=== PATIENT | female | born 1990 | race Hispanic/Latino ===

== ENCOUNTER 2018-03-01 00:17 | Emergency (ER) | payer SELFPAY ==
[2018-03-01 01:02] LABS: Absolute Lymphocytes (CBC) 2.6 K/uL (0.7-4.9); Absolute Monocytes 0.6 K/uL (0.1-1.3); Absolute Neutrophil 4.5 K/uL (1.8-8.0); Basophils % 0.6 % (0-1.3); Eosinophils % 3.2 % (0-4.4); Hematocrit 37.6 % (36.0-45.0); Lymphocytes % 32.2 % (15.3-44.8); MCH 29.6 pg (27.0-35.0); MCV 88.1 fL (80-100); MPV 7.9 fL (7.6-11.3); Monocytes % 7.7 % (3.3-12.3); RBC Red Blood Cell Count 4.27 M/uL (3.86-4.86)
[2018-03-01 01:46] LABS: BUN Blood Urea Nitrogen 20 mg/dL (7-18); Bicarbonate 29 mmol/L (21-32); Glucose Level 100 mg/dL (74-106); Potassium 4.7 mmol/L (3.5-5.1); Sodium Level 142 mmol/L (136-145); Troponin (Emerg Dept Use Only) < 0.02 ng/mL (0.0-0.045)
--- NOTE | 2018-03-01 02:06 | ER ---
Nurse's Notes [facility] Name: Annika Hilliard Age: 27 yrs Sex: Female : 1990 Arrival Date: 03/01/2018 Time: 00:19 Bed 6 Private MD: Diagnosis: Chest pain, unspecified Presentation: 03/01 00:29 Presenting complaint: Presenting complaint: Patient states: Chest pain that began lp1 Saturday morning, episodes that last "a few minutes"; States pain to mid chest that radiates to bilateral shoulders, "it feels like my throat is knotted up"; Denies any shortness of breath, nausea, dizziness. 00:30 Transition of care: patient was not received from another setting of care. Onset of lp1 symptoms was February 28, 2018 at 03:00. Risk Assessment: Do you want to hurt yourself or someone else? Patient reports no desire to harm self or others. Initial Sepsis Screen: Does the patient meet any 2 criteria? No. Patient's initial sepsis screen is negative. Does the patient have a suspected source of infection? No. Patient's initial sepsis screen is negative. Care prior to arrival: None. 00:30 Method Of Arrival: Ambulatory lp1 00:30 Acuity: KARLO 3 lp1 Triage Assessment: 00:33 General: Appears in no apparent distress. Behavior is appropriate for age. Pain: lp1 Complains of pain in chest. Cardiovascular: Patient's skin is warm and dry. Respiratory: Respiratory effort is even, unlabored. 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 - Social history:: Smoking status: Patient/guardian denies using tobacco. - Ebola Screening: : No symptoms or risks identified at this time. Screenin:33 Abuse screen: Denies threats or abuse. Denies injuries from another. Nutritional lp1 screening: No deficits noted. Tuberculosis screening: No symptoms or risk factors identified. Fall Risk None identified. Assessment: 00:25 General: Appears in no apparent distress. comfortable, Behavior is calm, cooperative, rr5 appropriate for age. Pain: Complains of pain in chest Pain radiates to right shoulder Pain currently is 4 out of 10 on a pain scale. Quality of pain is described as aching, Pain began gradually, Is intermittent. Neuro: Level of Consciousness is awake, alert, obeys commands, Oriented to person, place, time, situation. Cardiovascular: Reports chest pain, Capillary refill < 3 seconds Patient's skin is warm and dry. Respiratory: Airway is patent Respiratory effort is even, unlabored, Respiratory pattern is regular, symmetrical. GI: No signs and/or symptoms were reported involving the gastrointestinal system. : No signs and/or symptoms were reported regarding the genitourinary system. EENT: No signs and/or symptoms were reported regarding the EENT system. Derm: No signs and/or symptoms reported regarding the dermatologic system. Musculoskeletal: Capillary refill < 3 seconds, Range of motion: intact in all extremities. 01:26 Reassessment: Patient appears in no apparent distress at this time. no complaints made, rr5 lying comfortably on semi rodrigez's postion. awaiting for laboratory results. 02:10 Reassessment: Patient appears in no apparent distress at this time. reassessment done rr5 by ramsey RITTER, no complaints made. patient is discharged. explained instruction and advised followup if symptoms persist. Vital Signs: 00:33 BP 119 / 77; Pulse 73; Resp 18; Temp 98.3(O); Pulse Ox 98% on R/A; Weight 81.65 kg; lp1 Height 5 ft. 1 in. (154.94 cm); Pain 4/10; 01:27 BP 115 / 81; Pulse 61; Resp 16; Pulse Ox 99% on R/A; rr5 00:33 Body Mass Index 34.01 (81.65 kg, 154.94 cm) lp1 ED Course: 00:19 Patient arrived in ED. ds1 00:24 Ramsey Warren NP is PHCP. pm1 00:24 Leonel Ryan MD is Attending Physician. pm1 00:31 Triage completed. lp1 00:33 Arm band placed on left wrist. lp1 00:33 Patient maintains SpO2 saturation greater than 95% on room air. lp1 00:40 monitor technician on. Pulse ox on. NIBP on. rr5 00:40 Patient has correct armband on for positive identification. Bed in low position. Call rr5 light in reach. 00:48 X-ray completed. Portable x-ray completed in exam room. Patient tolerated procedure sg4 well. 00:51 XRAY Chest (1 view) In Process Unspecified. EDMS 00:55 Inserted saline lock: 20 gauge in right forearm, using aseptic technique. Blood rr5 collected. 00:57 Troy Garner, RN is Primary Nurse. rr5 02:18 No provider procedures requiring assistance completed. Patient did not have IV access rr5 during this emergency room visit. Administered Medications: No medications were administered Outcome: 02:05 Discharge ordered by MD. pm1 02:18 Discharged to home ambulatory. rr5 02:18 Condition: stable 02:18 Discharge instructions given to patient, Instructed on discharge instructions, follow up and referral plans. Demonstrated understanding of instructions, follow-up care. 02:19 Patient left the ED. rr5 Signatures: Dispatcher [employer] EDAZ Vivian Garcia ds1 Marguerite Carrero RN RN lp1 Ramsey Warren, APPLICATION DEVELOPER APPLICATION DEVELOPER pm1 Rachel Reyes sg4 Troy Garner, RN RN rr5 Corrections: (The following items were deleted from the chart) 00:31 00:29 Presenting complaint: lp1 lp1
--- NOTE | 2018-03-01 02:06 | EDPHYS ---
Physician Documentation [facility] Name: Annika Hilliard Age: 27 yrs Sex: Female : 1990 Arrival Date: 03/01/2018 Time: 00:19 Bed 6 Private MD: ED Physician Leonel Ryan HPI: 03/01 01:06 This 27 yrs old Female presents to ER via Ambulatory with complaints of Chest pm1 Pain. 01:06 The patient or guardian reports chest pain that is located primarily in the mid-sternal pm1 area. The pain radiates to Patient reports radiation to both shoulders. Associated signs and symptoms: Pertinent negatives: abdominal pain, cough, nausea, shortness of breath, vomiting. The chest pain is described as burning, sharp. Duration: The patient or guardian reports multiple episodes. Modifying factors: the symptoms are aggravated by deep breath, eating, palpation of area. Severity of pain: in the emergency department the pain has improved. The patient has not experienced similar symptoms in the past. The patient has not recently seen a physician. Onset at 0300 Saturday morning. 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 - Social history:: Smoking status: Patient/guardian denies using tobacco. - Ebola Screening: : No symptoms or risks identified at this time. ROS: 01:06 Constitutional: Negative for fever, chills, and weight loss, Eyes: Negative for injury, pm1 pain, redness, and discharge, ENT: Negative for injury, pain, and discharge, Neck: Negative for injury, pain, and swelling. 01:06 Respiratory: Negative for shortness of breath, cough, wheezing, and pleuritic chest pain, Abdomen/GI: Negative for abdominal pain, nausea, vomiting, diarrhea, and constipation, Back: Negative for injury and pain, : Negative for injury, bleeding, discharge, and swelling, MS/Extremity: Negative for injury and deformity, Skin: Negative for injury, rash, and discoloration, Neuro: Negative for headache, weakness, numbness, tingling, and seizure. 01:06 Cardiovascular: Positive for chest pain, Negative for edema, orthopnea, palpitations. Exam: 01:06 Constitutional: This is a well developed, well nourished patient who is awake, alert, pm1 and in no acute distress. Head/Face: Normocephalic, atraumatic. Eyes: Pupils equal round and reactive to light, extra-ocular motions intact. Lids and lashes normal. Conjunctiva and sclera are non-icteric and not injected. Cornea within normal limits. Periorbital areas with no swelling, redness, or edema. ENT: Nares patent. No nasal discharge, no septal abnormalities noted. Tympanic membranes are normal and external auditory canals are clear. Oropharynx with no redness, swelling, or masses, exudates, or evidence of obstruction, uvula midline. Mucous membranes moist. Neck: Trachea midline, no thyromegaly or masses palpated, and no cervical lymphadenopathy. Supple, full range of motion without nuchal rigidity, or vertebral point tenderness. No Meningismus. 01:06 Cardiovascular: Regular rate and rhythm with a normal S1 and S2. No gallops, murmurs, or rubs. Normal PMI, no JVD. No pulse deficits. Respiratory: Lungs have equal breath sounds bilaterally, clear to auscultation and percussion. No rales, rhonchi or wheezes noted. No increased work of breathing, no retractions or nasal flaring. Abdomen/GI: Soft, non-tender, with normal bowel sounds. No distension or tympany. No guarding or rebound. No evidence of tenderness throughout. Back: No spinal tenderness. No costovertebral tenderness. Full range of motion. Skin: Warm, dry with normal turgor. Normal color with no rashes, no lesions, and no evidence of cellulitis. MS/ Extremity: Pulses equal, no cyanosis. Neurovascular intact. Full, normal range of motion. 01:06 Chest/axilla: Inspection: normal, Palpation: tenderness, that is moderate, of the mid-sternal area, that totally reproduces the patient's complaints. 01:06 Neuro: Orientation: is normal, Motor: is normal, moves all fours, Gait: is steady, at a normal pace, without difficulty. Vital Signs: 00:33 BP 119 / 77; Pulse 73; Resp 18; Temp 98.3(O); Pulse Ox 98% on R/A; Weight 81.65 kg; lp1 Height 5 ft. 1 in. (154.94 cm); Pain 4/10; 01:27 BP 115 / 81; Pulse 61; Resp 16; Pulse Ox 99% on R/A; rr5 00:33 Body Mass Index 34.01 (81.65 kg, 154.94 cm) lp1 MDM: 00:24 Patient medically screened. pm1 01:14 Data reviewed: vital signs. Data interpreted: Pulse oximetry: on room air is 98 %. pm1 Interpretation: normal. 02:05 JOSE Risk Score: TOTAL SCORE = 0. pm1 02:05 Counseling: I had a detailed discussion with the patient and/or guardian regarding: the pm1 historical points, exam findings, and any diagnostic results supporting the discharge/admit diagnosis, lab results, radiology results, the need for outpatient follow up, to return to the emergency department if symptoms worsen or persist or if there are any questions or concerns that arise at home. 03/01 00:28 Order name: Basic Metabolic Panel; Complete Time: 01:47 pm1 03/01 00:28 Order name: CBC with Diff; Complete Time: 01:41 pm1 03/01 00:28 Order name: EKG - Nurse/Tech; Complete Time: 00:57 pm1 03/01 00:28 Order name: Troponin (emerg Dept Use Only); Complete Time: 01:47 pm1 03/01 00:28 Order name: XRAY Chest (1 view) pm1 03/01 00:28 Order name: EKG; Complete Time: 00:31 pm1 03/01 00:28 Order name: Cardiac monitoring; Complete Time: 00:57 pm1 03/01 00:28 Order name: IV Saline Lock; Complete Time: 00:57 pm1 03/01 00:28 Order name: Labs collected and sent; Complete Time: 00:57 pm1 Administered Medications: No medications were administered Disposition: 02:53 Co-signature as Attending Physician, Leonel Ryan MD. rn Disposition: 03/01/18 02:05 Discharged to Home. Impression: Chest pain, unspecified. - Condition is Stable. - Discharge Instructions: Nonspecific Chest Pain. - Medication Reconciliation Form, Thank You Letter form. - Follow up: Emergency Department; When: As needed; Reason: Worsening of condition. Follow up: Private Physician; When: 2 - 3 days; Reason: Recheck today's complaints, Continuance of care, Re-evaluation by your physician. - Problem is new. - Symptoms have improved. Signatures: Dispatcher [employer] EDMS Leonel Ryan MD MD rn Pena, Laura RN RN lp1 Dandy Warren, STONE SCREWHEAD POLISHER pm1 Troy Garner RN RN rr5 Corrections: (The following items were deleted from the chart) 02:19 02:05 03/01/2018 02:05 Discharged to Home. Impression: Chest pain, unspecified. rr5 Condition is Stable. Forms are Medication Reconciliation Form, Thank You Letter, Antibiotic Education, Prescription Opioid Use. Follow up: Emergency Department; When: As needed; Reason: Worsening of condition. Follow up: Private Physician; When: 2 - 3 days; Reason: Recheck today's complaints, Continuance of care, Re-evaluation by your physician. Problem is new. Symptoms have improved. pm1
--- NOTE | 2018-03-01 06:58 | EKG ---
Test Date: 2018-03-01 Test Time: 00:35:21 Ski Maker: RR MEASUREMENT RESULTS: Intervals: Rate: 59 NC: 166 QRSD: 86 QT: 428 QTc: 423 [place]: P: 38 NC: 166 QRS: 47 T: 30 INTERPRETIVE STATEMENTS: Sinus bradycardia with sinus arrhythmia Otherwise normal ECG No previous ECG available for comparison Electronically Signed On 03-01-18 06:58:21 OBIEE REPORT DEVELOPER by Edu Carpenter
--- NOTE | 2018-03-01 08:53 | RAD REPORT ---
EXAM DESCRIPTION: RAD - Chest Single View - 03/01/2018 12:53 am CLINICAL HISTORY: Chest pain COMPARISON: None. TECHNIQUE: AP portable chest image was obtained 0037 hours . FINDINGS: Lung volumes are low. No focal lung parenchymal process seen. Heart and vasculature are no rmal. No measurable pleural effusion and no pneumothorax. No acute bony abnormality seen. No acute ao rtic findings suspected. IMPRESSION: No acute cardiopulmonary process.
== END 2018-03-01 02:19 | disposition home or self-care (01) ==
LOC: ER 00:17
DX: R07.9 Chest pain, unspecified (principal); R00.1 Bradycardia, unspecified
CPT/HCPCS: 36415; 71045; 80048; 84484; 85025; 93005; 99285